=== PATIENT | female | born 1970 | race Caucasian/White ===

== ENCOUNTER 2019-05-23 05:59 | Day surgery (SDC) | payer OTHER ==
[~2019-05-23] VITALS: Ht 165.1 cm; Wt 71.8 kg
[~2019-05-23 05:59] MED LIST: SODIUM CHLORIDE 0.9% 1,000 ML IV ONE
[2019-05-23] MEDS ORDERED: BENZOCAINE 20% 50 MCG/SPRAY 57 GM TP ONE (06:00)
[2019-05-23] MEDS ORDERED: LIDOCAINE 4% 50 ML SOLUTION TP ONE (06:00)
[2019-05-23] MEDS ORDERED: LIDOCAINE 2% 30 ML JELLY TP ONE (06:00)
[2019-05-23] MEDS: SODIUM CHLORIDE 0.9% 1,000 ML IV ONE (07:05)
[2019-05-23] MEDS ORDERED: MONT10TA21 PO (07:14)
[2019-05-23] MEDS ORDERED: OMEP20 PO (07:14)
[2019-05-23] MEDS ORDERED: ESCI20TA PO (07:14)
[2019-05-23] MEDS ORDERED: ALBU8HFA IH (07:14)
[2019-05-23] MEDS ORDERED: BUDE10.2 IH (07:14)
[2019-05-23] MEDS ORDERED: PRED20 PO (07:14)
[2019-05-23] MEDS ORDERED: FentaNYL CITRATE-PF 100 MCG/2 ML VIAL ONE (07:48)
[2019-05-23] MEDS ORDERED: MIDAZOLAM HCL 2 MG/2 ML VIAL ONE (07:48)
[2019-05-23] MEDS: MethylPREDNISolone SOD SUCC 125 MG/2 ML VIAL IVP ONE (08:39)
[2019-05-23] MEDS ORDERED: OXYGEN THERAPY IH SCH (20:00)
== END 2019-05-23 09:45 | disposition home or self-care (01) ==
LOC: SURGERY 05:59
PROVIDERS: ATTEND Internal Medicine Critical Care Medicine
DX: J38.4 Edema of larynx (principal); B37.0 Candidal stomatitis; M19.90 Unspecified osteoarthritis, unspecified site; Z98.890 Other specified postprocedural states
CPT/HCPCS: 31623; 31624; 71045; 87015; 87070; 87101; 87205; 87206; 87220; 88108; 88312; J2250; J2930; J3010; J7030

== ENCOUNTER 2021-02-22 07:12 | Emergency (ER) | payer OTHER ==
[~2021-02-22] VITALS: Ht 167.6 cm; Wt 85.0 kg
[~2021-02-22 07:12] MED LIST changes: +ALBU8HFA IH; +BUDE10.2 IH; +ESCI20TA87 PO; +MONT-35 PO; +OMEP20 PO; +PRED20 PO; -SODIUM CHLORIDE 0.9% 1,000 ML IV ONE
[2021-02-22 09:30] VITALS: BP 116/81
== END 2021-02-22 09:42 | disposition home or self-care (01) ==
LOC: EMS 07:15
DX: S52.571A Other intraarticular fracture of lower end of right radius, initial encounter for closed fracture (principal); J45.909 Unspecified asthma, uncomplicated; W19.XXXA Unspecified fall, initial encounter; Y93.89 Activity, other specified; Y92.89 Other specified places as the place of occurrence of the external cause; Y99.8 Other external cause status
CPT/HCPCS: 99284; 73090-TC; 73110-TC; Z7502